=== PATIENT | male | born 1965 | race Two or more races ===

== ENCOUNTER 2020-07-22 09:04 | Inpatient (IN) | payer OTHER ==
[~2020-07-22] VITALS: Ht 172.7 cm; Wt 76.4 kg
--- NOTE | 2020-07-22 09:26 | PHYS DOC ---
Past History Past Medical History: Diabetes, Stroke Smoking: Quit Greater Than 1 Year General Adult EDM: Chief Complaint: ABDOMINAL PAIN HPI: HPI: Patient is a 55-year-old male arrives via EMS with a chief complaint of nausea and vomiting that began this morning. Patient states he had some diarrhea yesterday. Patient describes moderate at rest and severe in intensity diffuse abdominal pain that does not radiate. Patient denies any fevers but is diaphoretic. Pain is worse with movement and palpation. Pain is worse with eating. Pain is described as constant stabbing pain Review of Systems: Review of Systems: Constitutional: Denies fever Eyes: Denies change in visual acuity HENT: Denies nasal congestion or sore throat Respiratory: Denies cough or shortness of breath Cardiovascular: Denies chest pain or edema GI: Complains of abdominal pain, nausea, vomiting, diarrhea : Denies dysuria Musculoskeletal: Denies back pain or joint pain Integument: Denies rash Neurologic: Denies headache, focal weakness or sensory changes Endocrine: Complains of polyuria Lymphatic: Denies swollen glands Psychiatric: Denies depression or anxiety Heart Score: Risk Factors: Risk Factors: DM, Current or recent (<one month) smoker, HTN, HLP, family history of CAD, obesity. Risk Scores: Score 0 - 3: 2.5% MACE over next 6 weeks - Discharge Home Score 4 - 6: 20.3% MACE over next 6 weeks - Admit for Clinical Observation Score 7 - 10: 72.7% MACE over next 6 weeks - Early Invasive Strategies Allergies: Allergies: Allergies Coded Allergies Type Severity Reaction Last Updated Verified No Known Drug Allergies 07/22/20 No Physical Exam: PE: Constitutional: Well developed, well nourished, mild distress anxious HENT: Normocephalic, atraumatic, bilateral external ears normal, dry mucous membranes, nose normal. [] Eyes: PERRLA, EOMI, conjunctiva normal, no discharge. [] Neck: Normal range of motion, no tenderness, supple, no stridor. [] Cardiovascular:Heart rate regular rhythm, peripheral pulse intact, cap refill brisk Lungs & Thorax: Bilateral breath sounds clear, no respiratory distress Abdomen: Abdomen soft with diffuse tenderness no guarding rebound no masses no pulsatile masses Skin: Diaphoretic no erythema, no rash. [] Back: No tenderness, no CVA tenderness. [] Extremities: No tenderness, no cyanosis, no clubbing, ROM intact, no edema. [] Neurologic: Alert and oriented X 3, normal motor function, normal sensory function, no focal deficits noted. [] Psychologic: Affect normal, judgement normal, mood normal. [] Current Patient Data: Labs: Laboratory Tests Test 07/22/20 09:14 07/22/20 09:19 White Blood Count 10.8 x10^3/uL Red Blood Count 5.00 x10^6/uL Hemoglobin 14.4 g/dL Hematocrit 43.4 % Mean Corpuscular Volume 87 fL Mean Corpuscular Hemoglobin 29 pg Mean Corpuscular Hemoglobin Concent 33 g/dL Red Cell Distribution Width 15.8 % Platelet Count 308 x10^3/uL Neutrophils (%) (Auto) 78 % Lymphocytes (%) (Auto) 18 % Monocytes (%) (Auto) 3 % Eosinophils (%) (Auto) 1 % Basophils (%) (Auto) 1 % Neutrophils # (Auto) 8.5 x10^3uL Lymphocytes # (Auto) 2.0 x10^3/uL Monocytes # (Auto) 0.3 x10^3/uL Eosinophils # (Auto) 0.1 x10^3/uL Basophils # (Auto) 0.1 x10^3/uL Sodium Level 135 mmol/L Potassium Level 4.0 mmol/L Chloride Level 97 mmol/L Carbon Dioxide Level 20 mmol/L Anion Gap 18 Blood Urea Nitrogen 15 mg/dL Creatinine 1.1 mg/dL Estimated GFR (Cockcroft-Gault) 69.2 BUN/Creatinine Ratio 14 Glucose Level 445 mg/dL Lactic Acid Level 4.1 mmol/L Calcium Level 10.0 mg/dL Total Bilirubin 0.8 mg/dL Aspartate Amino Transf (AST/SGOT) 34 U/L Alanine Aminotransferase (ALT/SGPT) 59 U/L Alkaline Phosphatase 117 U/L Troponin I Quantitative < 0.017 ng/mL Total Protein 7.8 g/dL Albumin 4.1 g/dL Albumin/Globulin Ratio 1.1 Lipase 316 U/L Glucose (Fingerstick) 416 mg/dL Current Medications Medications (Trade) Dose Ordered Sig/Bernadette Route PRN Reason Start Time Stop Time Status Last Admin Dose Admin Sodium Chloride 1,000 ml @ 1,000 mls/hr 1X ONCE IV 9/26/20 09:30 07/22/20 10:29 DC 07/22/20 09:28 Ondansetron HCl (Zofran) 4 mg 1X ONCE IVP 07/22/20 09:30 07/22/20 09:41 DC 07/22/20 09:30 Morphine Sulfate (Morphine 4mg Syringe) 4 mg 1X ONCE IV 07/22/20 09:30 07/22/20 09:41 DC 07/22/20 09:31 Iohexol (Omnipaque 300 Mg/ml) 75 ml 1X ONCE IV 07/22/20 09:30 07/22/20 09:41 DC Metoclopramide HCl (Reglan Vial) 10 mg 1X ONCE IVP 07/22/20 09:45 07/22/20 09:46 DC 07/22/20 09:44 Piperacillin Sod/ Tazobactam Sod 3.375 gm/Sodium Chloride 50 ml @ 100 mls/hr 1X ONCE IV 07/22/20 10:15 07/22/20 10:44 DC 07/22/20 10:28 Sodium Chloride 2,040 ml @ 2,040 mls/hr Q1H IV 07/22/20 10:07 07/22/20 10:16 Sodium Chloride 1,000 ml @ 1,000 mls/hr 1X ONCE IV 07/22/20 10:15 07/22/20 11:14 DC Morphine Sulfate (Morphine 4mg Syringe) 4 mg 1X ONCE IV 07/22/20 10:15 07/22/20 10:22 DC 07/22/20 10:20 Sodium Chloride 50 ml @ As Directed STK-MED ONCE .ROUTE 07/22/20 10:23 07/22/20 10:23 DC Piperacillin Sod/ Tazobactam Sod (Zosyn) 3.375 gm STK-MED ONCE IV 07/22/20 10:23 07/22/20 10:24 DC Laboratory Tests Test 07/22/20 09:19 Glucose (Fingerstick) 416 mg/dL (70-99) H Vital Signs: Vital Signs Date Time Temp Pulse Resp B/P (MAP) Pulse Ox O2 Delivery O2 Flow Rate FiO2 07/22/20 09:04 58 29 13/57 (42) 100 Room Air EKG: EKG: EKG interpreted by me normal sinus rhythm with rate of 63 normal axis normal intervals normal ST segments [] Radiology/Procedures: Radiology/Procedures: [][address] [address] IMAGING REPORT Signed PATIENT: GEORGE GUSMAN ACCOUNT: [id number] : 1965 LOCATION: ER AGE: 55 SEX: M EXAM STATUS: REG ER ORD. PHYSICIAN: JOCY TREVINO MD REASON: abd pain, n/v PROCEDURE: PORTABLE CHEST 1V EXAM: AP View of the chest DATE: 07/22/2020 9:22 AM INDICATION: abd pain, n/v COMPARISON: No Prior FINDINGS: The heart is not enlarged. Mediastinal and hilar contours are normal. No focal parenchymal airspace opacity. Calcified granuloma right upper lung. No pleural effusion or pneumothorax. IMPRESSION: 1. No radiographic evidence for acute cardiopulmonary process. Electronically signed by: Benedicto Davis MD (07/22/2020 10:26 AM) [id number] DICTATED AND SIGNED BY: BENEDICTO DAVIS MD DATE: 07/22/20 1026 CC: JOCY TREVINO MD; CHRISTA LIZ MD ~ [address] [address] IMAGING REPORT Signed PATIENT: GEORGE GUSMAN ACCOUNT: [id number] : 1965 LOCATION: ER AGE: 55 SEX: M EXAM STATUS: REG ER ORD. PHYSICIAN: JOCY TREVINO MD REASON: abd pain, n/v PROCEDURE: CT ABD PELV W/ IV CONTRST ONLY Exam performed: CT scan of the abdomen and pelvis with contrast Clinical Indication:Abdominal pain Date of Service:07/22/2020 comparison: None available Technique: Contiguous helical acquisitions are obtained from the lung bases to the pelvis during intravenous administration of [75 cc of Isovue-370]. Sagittal and coronal reformatted images were obtained and reviewed. CT abdomen and pelvis findings: The lung bases appear essentially clear. Visualized heart is normal Mild hepatic steatosis. The spleen and pancreas appears unremarkable. Cholecystectomy Both adrenal glands and bilateral kidneys appear normal with symmetric excretion of contrast via both kidneys. The small bowel loops appear nondilated and unremarkable. Previous appendectomy There is diffuse thickening of the transverse, descending and proximal sigmoid colon without inflammatory changes. There are colonic diverticulosis. Aorta is normal in caliber. There is no retroperitoneal lymphadenopathy or mass lesions. No bowel related inflammatory stranding is noted. The urinary bladder is well distended and normal . Prostate gland, seminal vesicles and rectum appear normal Interrogation of bone windows demonstrates no obvious bony abnormality. Sagittal and coronal reformatted images were obtained and reviewed which demonstrate no additional findings. Impression abdomen and pelvis : 1. Mild diffuse thickening of transverse and descending and proximal sigmoid colon without inflammatory changes. Mild colitis is suspected. 2. Sigmoid diverticulosis without acute diverticulitis. 3. Mild hepatic steatosis. PQRS Compliance Statement: One or more of the following individualized dose reduction techniques were utilized for this examination: 1. Automated exposure control 2. Adjustment of the mA and/or kV according to patient size 3. Use of iterative reconstruction technique Electronically signed by: Ender Chirinos MD (07/22/2020 11:03 AM) [id number] DICTATED AND SIGNED BY: ENDER CHIRINOS MD DATE: 07/22/20 1103 CC: JOCY TREVINO MD; CHRISTA LIZ MD ~ Course & Med Decision Making: Course & Med Decision Making Pertinent Labs and Imaging studies reviewed. (See chart for details) [] 55-year-old male presents with nausea vomiting. Patient has a history of diabetes and his blood sugar is over 400. Patient also sent lactate over 4. Patient has a anion gap acidosis, I am unsure if this is due to DKA or sepsis and lactic acidosis or more likely a combination of both. Patient has a CT that shows diffuse colitis of which she has been given Zosyn. Patient given sepsis fluids and was placed on insulin drip. Patient will be admitted to Dr. Luna to the ICU. Critical care time was 35 minutes exclusive of procedures. Critical condition: DKA, sepsis Critical interventions, sepsis bundle, insulin infusion, admission to the ICU [place] Disclaimer: Wayne Disclaimer: This electronic medical record was generated, in whole or in part, using a voice recognition dictation system. Date and Time of Assessment Date: Jul 22, 2020 Time: 10:00 Vital Signs Vital Signs Vital Signs Date Time Temp Pulse Resp B/P (MAP) Pulse Ox O2 Delivery O2 Flow Rate FiO2 07/22/20 09:07 97.5 58 24 163/98 (119) 100 07/22/20 09:04 Room Air Vital Signs Date Time Temp Pulse Resp B/P (MAP) Pulse Ox O2 Delivery O2 Flow Rate FiO2 07/22/20 09:07 97.5 58 24 163/98 (119) 100 07/22/20 09:04 Room Air Respirations Respiratory Effort: Normal Respiratory Pattern: Normal Cardiovascular Pulse Rhythm: Regular HEART: Nml rate, reg. rhythm Lung Sounds Breath Sounds: Clear Capillary Refill Capillary Refill: Lt Hand < 3 seconds Peripheral Pulse Pulse Location: Monitor Pulse Strength: Normal (2+) Pulse Assessment Method: NIBP Integumentary Skin: Diaphoretic Skin Moisture: Diaphoretic Skin Turgor: Normal Skin Color: no erythema Fingernail Color: WNL Departure Departure: Impression: Primary Impression: DKA (diabetic ketoacidoses) Additional Impressions: Sepsis Abdominal pain Colitis Disposition: ADMITTED INPATIENT Admitting Physician: Osman Luna Condition: GUARDED Referrals: CHRISTA LIZ MD (PCP) Justification of Admission: Justification of Admission: Justification of Admission Dx: Yes (dka, colitis) JOCY TREVINO MD Jul 22, 2020 09:26
[2020-07-22] MEDS ORDERED: ONDANSETRON PF 4 MG/2 ML VIAL. IVP ONE (09:30)
[2020-07-22] MEDS ORDERED: IOHEXOL 300 MG/ML 75 ML VIAL. IV ONE (09:30)
[2020-07-22] MEDS ORDERED: MORPHINE SULFATE 4 MG/ML DISP.SYRIN. IV ONE ×2 (09:30→10:15)
[2020-07-22] MEDS ORDERED: IV NORMAL SALINE 1,000ML 1,000 ML IV ONE ×3 (09:30→11:30)
[2020-07-22 09:36] LABS: BASO # 0.1 x10^3/uL (0.0-0.2); BASO % 1 % (0-3); EOS # 0.1 x10^3/uL (0.0-0.7); EOS % 1 % (0-3); HEMATOCRIT 43.4 % (39.0-53.0); HEMOGLOBIN 14.4 g/dL (13.0-17.5); LYMPH % 18 % (24-48); MEAN CORPUSCULAR HEMOGLOBIN 29 pg (25-35); MEAN CORPUSCULAR HGB CONC 33 g/dL (31-37); MEAN CORPUSCULAR VOLUME 87 fL (79-100); MONO # 0.3 x10^3/uL (0.0-1.1); MONO % 3 % (0-9); NEUT # 8.5 x10^3uL (1.8-7.7); NEUT % 78 % (31-73); PLATELET COUNT 308 x10^3/uL (140-400); RED CELL DISTRIBUTION WIDTH 15.8 % (11.5-14.5); WHITE BLOOD COUNT 10.8 x10^3/uL (4.0-11.0)
[2020-07-22] MEDS ORDERED: METOCLOPRAMIDE HCL 10 MG/2 ML VIAL. IVP ONE (09:45)
[2020-07-22 09:50] LABS: ALBUMIN 4.1 g/dL (3.4-5.0); ALBUMIN/GLOBULIN RATIO 1.1 (1.0-1.7); CREATININE 1.1 mg/dL (0.7-1.3); GFR 69.2; TOTAL BILIRUBIN 0.8 mg/dL (0.2-1.0); TOTAL PROTEIN 7.8 g/dL (6.4-8.2)
[2020-07-22] MEDS ORDERED: IV NORMAL SALINE 1,000ML 2,040 ML IV SCH (10:07)
[2020-07-22] MEDS ORDERED: PIPERACILLIN/TAZOBACTAM 3.375 GM in IV NORMAL SALINE 50ML 50 ML IV ONE (10:15)
[2020-07-22] MEDS ORDERED: IV NORMAL SALINE 50ML 50 ML ONE (10:23)
[2020-07-22] MEDS ORDERED: PIPERACILLIN/TAZOBACTAM 3.375 GM VIAL IV ONE (10:23)
--- NOTE | 2020-07-22 10:29 | RAD ---
EXAM: AP View of the chest DATE: 07/22/2020 9:22 AM INDICATION: abd pain, n/v COMPARISON: No Prior FINDINGS: The heart is not enlarged. Mediastinal and hilar contours are normal. No focal parenchymal airspace opacity. Calcified granuloma right upper lung. No pleural effusion or pneumothorax. IMPRESSION: 1. No radiographic evidence for acute cardiopulmonary process. Electronically signed by: Benedicto Bernal MD (07/22/2020 10:26 AM) [id number]
--- NOTE | 2020-07-22 11:06 | RAD ---
Exam performed: CT scan of the abdomen and pelvis with contrast Clinical Indication:Abdominal pain Date of Service:07/22/2020 comparison: None available Technique: Contiguous helical acquisitions are obtained from the lung bases to the pelvis during intravenous administration of [75 cc of Isovue-370]. Sagittal and coronal reformatted images were obtained and reviewed. CT abdomen and pelvis findings: The lung bases appear essentially clear. Visualized heart is normal Mild hepatic steatosis. The spleen and pancreas appears unremarkable. Cholecystectomy Both adrenal glands and bilateral kidneys appear normal with symmetric excretion of contrast via both kidneys. The small bowel loops appear nondilated and unremarkable. Previous appendectomy There is diffuse thickening of the transverse, descending and proximal sigmoid colon without inflammatory changes. There are colonic diverticulosis. Aorta is normal in caliber. There is no retroperitoneal lymphadenopathy or mass lesions. No bowel related inflammatory stranding is noted. The urinary bladder is well distended and normal . Prostate gland, seminal vesicles and rectum appear normal Interrogation of bone windows demonstrates no obvious bony abnormality. Sagittal and coronal reformatted images were obtained and reviewed which demonstrate no additional findings. Impression abdomen and pelvis : 1. Mild diffuse thickening of transverse and descending and proximal sigmoid colon without inflammatory changes. Mild colitis is suspected. 2. Sigmoid diverticulosis without acute diverticulitis. 3. Mild hepatic steatosis. PQRS Compliance Statement: One or more of the following individualized dose reduction techniques were utilized for this examination: 1. Automated exposure control 2. Adjustment of the mA and/or kV according to patient size 3. Use of iterative reconstruction technique Electronically signed by: Ashley Chirinos MD (07/22/2020 11:03 AM) [id number]
[2020-07-22 11:23] LABS: BILIRUBIN,URINE NEG (NEG); CLARITY,URINE CLEAR; COLOR,URINE YELLOW; GLUCOSE,URINE >=1000 mg/dL (NEG); NITRITE,URINE NEG (NEG); UROBILINOGEN,URINE 0.2 mg/dL (0.2 mg/dL)
[2020-07-22 11:24] LABS: BACTERIA,URINE 0 /HPF (0-FEW); SQUAMOUS EPITHELIAL CELL,UR FEW /LPF; WBC,URINE OCC /HPF (0-4)
[2020-07-22] MEDS ORDERED: DEXTROSE 50% 25 GM / 50ML DISP.SYRIN. IV PRN (11:30)
[2020-07-22] MEDS ORDERED: INSULIN REGULAR VIAL 100 UNIT in IV NORMAL SALINE 100ML 100 ML IV PRN (11:30)
[2020-07-22] MEDS ORDERED: IV NORMAL SALINE 100ML 100 ML ONE (12:41)
[2020-07-22] MEDS: MORPHINE SULFATE 2 MG/ML DISP.SYRIN. IVP PRN ×4 (12:45→22:28)
--- NOTE | 2020-07-22 13:25 | NUR ---
The patient, GEORGE GUSMAN, 55 y/o, M admitted by LARA MALLOY MD, was given written information regarding hospital policies, unit procedures and contact persons. Valuables were checked and left with patient at bedside. pt's was called and verified meds via phone. pt's resting in bed. Insulin drip resumed and IV fluids running at this time. Pt requested more pain medication.
[2020-07-22 13:30] VITALS: BP 154/84
--- NOTE | 2020-07-22 14:14 | EKG ---
[address] [address] Test Date: 2020-07-22 Test Time: 09:17:01 Pat Name: GEORGE GUSMAN Department: Room: [id number] 1 Gender: M Graphic User Interface Designer: NANCI : 1965 Requested By: JOCY TREVINO Order Number: [id number] Reading MD: Gurjit Candelario Measurements Intervals Tarrs Rate: 63 P: 1 RI: 158 QRS: 3 QRSD: 86 T: 40 QT: 448 QTc: 462 Interpretive Statements SINUS RHYTHM NORMAL ECG RI6.02 No previous ECG available for comparison Electronically Signed On 07-26-2020 12:31:18 CDT by Gurjit Candelario
[2020-07-22] MEDS ORDERED: CITA20TA9 PO (14:16)
[2020-07-22] MEDS ORDERED: NPH,100V SQ (14:16)
[2020-07-22] MEDS ORDERED: INSU100V11 IJ (14:16)
[2020-07-22] MEDS ORDERED: LISI1TAB23 PO (14:16)
[2020-07-22 15:12] VITALS: BP 138/85
[2020-07-22 16:59] LABS: CALCIUM 9.2 mg/dL (8.5-10.1); GFR 77.3; POTASSIUM 3.7 mmol/L (3.5-5.1)
--- NOTE | 2020-07-22 17:01 | HP ---
ADMIT DATE: 07/22/2020 HISTORY OF PRESENT ILLNESS: The patient is a 55-year-old male patient who presented to the Emergency Room with severe abdominal pain that started around 6:00 this morning. He had some diarrhea yesterday. The patient describes moderate at rest and severe in intensity of diffuse abdominal pain that does not radiate. He denied any fever, but he was diaphoretic when he arrived. The pain is worse with movement and palpation, worse with eating. He describes it as a constant, stabbing pain. He was extensively investigated in the Emergency Room and his lab work showed that his white cell count was actually normal; however, his chemistry showed that he has high anion gap metabolic acidosis, hyperglycemia and also lactic acidosis; in fact, his lactic acid was 4.1. His urinalysis showed large amount of glucose, large amount of ketones, trace amount of blood, but negative for nitrite, bilirubin and leukocyte esterase. His chest x-ray was unremarkable; however, CT scan of the abdomen and pelvis with IV contrast showed the patient has mild diffuse thickening of the transverse and descending and proximal sigmoid colon without inflammatory changes, mild colitis suspected. He has sigmoid diverticulosis without acute diverticulitis and mild hepatic steatosis. The urinary bladder is well distended and normal. Prostate gland, seminal vesicle and rectum appear normal. Interrogation of bone windows demonstrates no obvious bony abnormality and the patient was admitted with diagnoses of diabetic ketoacidosis as well as lactic acidosis. He has colitis, is possibly infectious versus ischemic; was treated with IV fluid, IV Zosyn and was started on insulin drip. It transpired that he has not had any insulin for over the last 6 months. He was on Levemir and Humalog insulin and then he ran out of his insurance, he has not received any insulin for the last 6 months. PAST MEDICAL HISTORY: Significant for type 2 diabetes, diagnosed about 15 years ago; hypertension, cerebrovascular accident with left-sided weakness x 2. 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 He has also what seemed to be necrotizing fasciitis, was treated about a year ago when he moved to this state from [place]. At that time, he had also infected left fifth toe that was amputated. PAST SURGICAL HISTORY: Significant for appendectomy, cholecystectomy, rotator cuff tear repair x 2 over the right side. He has loop recorder when he had CVA in 2019 for possible arrhythmia and most recently about 4 weeks ago, he had an infected cyst on the outer aspect of left thigh that was incised and drained and was treated with IV antibiotic while in the hospital and continued to take oral antibiotics thereafter. In fact, yesterday he went to his wound care team there and was told that he does not need any dressing changes. ALLERGIES: He has no known drug allergies. MEDICATIONS: He is currently on following medications: He is on lisinopril/hydrochlorothiazide 10/12.5 one tablet once a day, citalopram hydrobromide 20 mg once a day. He is on Novolin R 7 units 3 times a day and NPH insulin 15 units b.i.d. FAMILY HISTORY: He has 5 sisters, older and healthy. His father at the age of 78 because of myocardial infarction. Mother is still alive at the age of 90 and used to be diabetic; however, she lost lots of weight and she has no more diabetes according to him. SOCIAL HISTORY: He is , has 3 daughters. He quit smoking about 15 years ago. He does not drink alcohol; however, he smokes marijuana occasionally. He is currently on disability. REVIEW OF SYSTEMS: The patient did complain of blurring vision mostly in his right eye, but denied any cataract, glaucoma or macular degeneration. Denied any earache, tinnitus or sensorineural deafness. Denied any nosebleeds, stuffy nose or postnasal drip. Denied any sore throat, sore tongue, toothache, hoarseness of voice or difficulty swallowing. Did complain of recurrent bouts of nausea and vomiting this morning started around 6:00 according to him; did have diarrhea yesterday; however, he denied any hematemesis, melena, or hematochezia. Denied any dysuria, frequency or hematuria. Denied any nocturia. Denied any chest pain, shortness of breath, orthopnea, paroxysmal nocturnal dyspnea. Denied any cough, phlegm or hemoptysis. Denied any dizziness, lightheadedness, or vertigo. Denied any fever, rigors, or chills. PHYSICAL EXAMINATION: GENERAL: On arrival to the Emergency Room, he was somewhat pale, but no jaundice, cyanosis or thyromegaly. No jugular venous distention. No limb edema. VITAL SIGNS: His heart rate was 58, blood pressure was 163/98, temperature was 97.5, respiratory rate 24 and oxygen saturation was 100%. HEAD, EYES, EARS, NOSE AND THROAT: Showed normocephalic, atraumatic. NECK: Supple. HEART: Showed normal first and second heart sounds. No gallop or murmur. CHEST: Showed central trachea, equal bilateral expansion, air entry, vesicular breath sounds. No crepitation or rhonchi. ABDOMEN: Distended, soft, diffusely tender. There was no guarding or rigidity. No organomegaly. All hernial orifices intact. Bowel sounds normal. NEUROLOGIC: He was awake, alert, responding appropriately. All cranial nerves intact. EXTREMITIES: He moves extremities without difficulty. The wound on the outer aspect of his left thigh has healed completely with no surrounding erythema, tenderness or discharge. He has left fifth toe amputation. LABORATORY DATA: His lab work on arrival showed a white cell count of 10,800, hemoglobin 14.4, hematocrit 43.4, MCV 87 and platelet count of 308,000 with normal manual differential. His chemistry showed a serum sodium 135, potassium 4, chloride 97, bicarbonate 20, anion gap of 18, BUN of 15, creatinine 1.1, estimated GFR was 69 mL per minute. His glucose was 145, calcium was 10. Total bilirubin, AST, ALT were normal. Alkaline phosphatase slightly elevated. His total protein was 7.8, albumin was 4.1. Serum lipase was 316. Troponin was less than 0.017. His initial lactic acid was 4.1. His urinalysis showed that the urine was yellow, clear with a pH of 6.5, specific gravity of 1.015 with small amount of protein, large amount of glucose and large amount of ketones. The urine was negative for nitrite, bilirubin and leukocyte esterase. There were 1-2 rbc's, occasional wbc's, and no bacteria. His chest x-ray showed the heart is not enlarged. The mediastinum and hilum contours are normal. No focal parenchymal airspace opacity. Calcified granuloma, right upper lung. No pleural effusion or pneumothorax. His CT scan of the abdomen with IV contrast showed the lung bases appear essentially clear. Visualized heart is normal. He has mild hepatic steatosis. The spleen and the pancreas appear unremarkable. He has cholecystectomy. Both adrenal glands and bilateral kidneys appear normal with symmetric excretion of contrast via both kidneys. The small bowel loops appear nondilated and unremarkable. Previous appendectomy. There is diffuse thickening of the transverse, descending and proximal sigmoid colon without inflammatory changes and there is colonic diverticulosis. Aorta is normal in caliber. There are no retroperitoneal lymphadenopathy or mass lesions. No bowel related inflammatory stranding is noted. The urinary bladder is well distended and normal. Prostate gland, seminal vesicles and rectum appeared normal. Interrogation of bone windows demonstrates no obvious bony abnormality. The sagittal and coronal reformatted images were obtained and reviewed, which demonstrate no additional finding and the impression is that the patient has mild diffuse thickening of the transverse and descending and proximal sigmoid colon without inflammatory changes, has mild colitis and suspected sigmoid diverticulosis without acute diverticulitis and mild hepatic steatosis. ASSESSMENT AND PLAN: The patient was basically admitted with acute infectious versus ischemic colitis. He has also metabolic lactic acidosis and mild diabetic ketoacidosis. He is known to have type 2 diabetes as well as hypertension. He has also depression, for which he is on citalopram hydrobromide. My plan is to continue with IV fluid, continue with IV Zosyn, continue with the insulin drip and continue with IV morphine and will repeat his labs this afternoon and again tomorrow. I also added LDH to see whether this is ischemic versus infectious colitis. LARA MALLOY MD DR: CLAIRE/elaina JOB#: [id number] / [id number]
[2020-07-22 17:05] LABS: ALBUMIN 3.7 g/dL (3.4-5.0); ALBUMIN/GLOBULIN RATIO 0.9 (1.0-1.7); TOTAL BILIRUBIN 0.6 mg/dL (0.2-1.0); TOTAL PROTEIN 7.6 g/dL (6.4-8.2)
[2020-07-22] MEDS: PIPERACILLIN/TAZOBACTAM 3.375 GM in IV NORMAL SALINE 50ML 50 ML IV SCH (18:26)
[2020-07-22] MEDS ORDERED: IV DEXTROSE 5 %-0.45 % NACL 1,000 ML IV SCH (18:34)
[2020-07-22] MEDS ORDERED: POTASSIUM CHLORIDE 10MEQ 100 ML IV PRN (18:45)
[2020-07-22] MEDS: POTASSIUM CL 20MEQ D5-0.45NACL 1,000 ML IV SCH (19:54)
[2020-07-22 20:59] VITALS: BP 152/88
[2020-07-22 23:14] LABS: CALCIUM 8.7 mg/dL (8.5-10.1); CREATININE 0.8 mg/dL (0.7-1.3); POTASSIUM 3.4 mmol/L (3.5-5.1)
[2020-07-22 23:38] VITALS: BP 140/84
[2020-07-23] VITALS (8 sets, daily range): BP systolic 142–166; BP diastolic 63–96
[2020-07-23] MEDS: PIPERACILLIN/TAZOBACTAM 3.375 GM in IV NORMAL SALINE 50ML 50 ML IV SCH ×4 (00:05→19:18)
[2020-07-23] MEDS: POTASSIUM CL 20MEQ D5-0.45NACL 1,000 ML IV SCH ×2 (01:42→08:00)
[2020-07-23] MEDS: MORPHINE SULFATE 2 MG/ML DISP.SYRIN. IVP PRN ×2 (01:46→06:04)
[2020-07-23] MEDS: ONDANSETRON PF 4 MG/2 ML VIAL. IVP PRN ×2 (06:03→10:10)
[2020-07-23 06:52] LABS: HEMATOCRIT 36.2 % (39.0-53.0); HEMOGLOBIN 12.1 g/dL (13.0-17.5); RED BLOOD COUNT 4.19 x10^6/uL (4.30-5.70); RED CELL DISTRIBUTION WIDTH 15.8 % (11.5-14.5); WHITE BLOOD COUNT 7.3 x10^3/uL (4.0-11.0)
[2020-07-23 07:09] LABS: ALBUMIN 2.9 g/dL (3.4-5.0); ALBUMIN/GLOBULIN RATIO 0.9 (1.0-1.7); CALCIUM 8.6 mg/dL (8.5-10.1); CREATININE 0.8 mg/dL (0.7-1.3); POTASSIUM 3.3 mmol/L (3.5-5.1); TOTAL BILIRUBIN 0.8 mg/dL (0.2-1.0); TOTAL PROTEIN 6.3 g/dL (6.4-8.2)
[2020-07-23] MEDS ORDERED: FLU VACC QS 2020-21(6MOS+)/PF 0.5 ML SYRINGE. VAX IM ONE (09:00)
[2020-07-23] MEDS ORDERED: POTASSIUM CHLORIDE 20 MEQ TABLET.ER. PO ONE (09:15)
[2020-07-23] MEDS: POTASSIUM CL 40MEQ IN 0.9%NACL 1,000 ML IV SCH ×2 (10:04→22:46)
[2020-07-23] MEDS: oxyCODONE IR 5 MG TABLET PO PRN ×2 (10:05→19:33)
[2020-07-23] MEDS: INSULIN LISPRO 300 UNITS/3 ML VIAL. SQ SCH ×2 (12:49→17:09)
[2020-07-23] MEDS ORDERED: ONDANSETRON PF 4 MG/2 ML VIAL. IVP PRN (19:30)
[2020-07-23 19:42] LABS: CALCIUM 8.8 mg/dL (8.5-10.1); GFR 77.3; POTASSIUM 3.9 mmol/L (3.5-5.1)
[2020-07-23] MEDS: NEOMY/BACITR/POLYMYXIN OINT PACKET. TP SCH (22:46)
[2020-07-24] VITALS (7 sets, daily range): BP systolic 132–157; BP diastolic 49–106
[2020-07-24] MEDS: PIPERACILLIN/TAZOBACTAM 3.375 GM in IV NORMAL SALINE 50ML 50 ML IV SCH ×3 (00:02→11:54)
[2020-07-24 06:47] LABS: CREATININE 0.9 mg/dL (0.7-1.3); GFR 87.3; MAGNESIUM 1.7 mg/dL (1.8-2.4); POTASSIUM 3.9 mmol/L (3.5-5.1)
--- NOTE | 2020-07-24 07:39 | PN ---
DATE: 07/23/2020 SUBJECTIVE: The patient is resting, slightly propped up in bed, in no apparent respiratory distress. He is awake, alert, continued to have some nausea, but no vomiting. His abdominal pain is much better controlled. He has not had any bowel movement. He is afebrile and his white cell count is down to 7300. PHYSICAL EXAMINATION: GENERAL: When I examined him this afternoon, he looked well and was clearly in no apparent distress. No pallor, jaundice, cyanosis or thyromegaly. No jugular venous distention. No limb edema. VITAL SIGNS: His heart rate was 76, blood pressure was 160/90, temperature 98.3, respiratory rate was 18 and oxygen saturation was 96% on room air. HEAD, EYES, EARS, NOSE AND THROAT: Showed normocephalic, atraumatic. NECK: Supple. HEART: Showed normal first and second heart sounds. No gallop or murmur. CHEST: Showed central trachea, equal bilateral expansion, air entry, vesicular breath sounds. No crepitation or rhonchi. ABDOMEN: Distended, soft. No tenderness. No guarding or rigidity. No organomegaly. All hernial orifices intact. Bowel sounds normal. NEUROLOGIC: He was awake, alert, responding appropriately. All cranial nerves are intact. He moves extremities without difficulty. He ambulates without assistance or assistive devices. His intake and output are incompletely recorded. LABORATORY DATA: This morning showed white cell count is down to 7300, hemoglobin 12, hematocrit 36, MCV 87 and platelet count 239,000. His chemistry showed a serum sodium ____, potassium 3.7, chloride 102, bicarbonate 22, anion gap of 13, BUN 14, creatinine 1, estimated GFR was 77 mL per minute. His glucose was 197. Calcium was 9.2. Total bilirubin, AST, ALT, alkaline phosphatase were normal. Lactate dehydrogenase was 196. Serum sodium was 143. Total protein 6.3, albumin 2.9. ASSESSMENT: 1. Diabetic ketoacidosis, resolved. His anion gap is down to 10 from 18. 2. Hyponatremia, resolved. His blood sugar is much better controlled now. 3. Acute infectious colitis for which he is on Zosyn. The patient has had no bowel movement and his LDH was only 196 excluding the possibility of ischemic colitis. Other problems include type 2 diabetes mellitus diagnosed 15 years ago. The patient has been off his insulin for almost 6 months now. 4. Hypertension. 5. Cerebrovascular accident with left sided weakness x 2. 6. Diabetic peripheral neuropathy. 7. Visual impairment in his right eye. 8. Osteoarthritis of both hip joints. PLAN: My plan is to monitor his blood sugar and adjust insulin as needed. Continue with IV antibiotic. Continue with pain management and antiemetic. Continue with IV fluid for now. I will evaluate him again tomorrow morning and if he remains stable, he might be able to be discharged home to continue on oral antibiotic and insulin as he was before together with antihypertensive ____. LARA MALLOY MD DR: CLAIRE/elaina JOB#: [id number] / [id number]
[2020-07-24] MEDS: oxyCODONE IR 5 MG TABLET PO PRN (08:37)
[2020-07-24] MEDS: INSULIN LISPRO 300 UNITS/3 ML VIAL. SQ SCH ×2 (08:44→12:01)
[2020-07-24] MEDS: NEOMY/BACITR/POLYMYXIN OINT PACKET. TP SCH ×2 (08:45→12:01)
[2020-07-24] MEDS ORDERED: LISINOPRIL 10 MG TABLET PO SCH (09:00)
[2020-07-24] MEDS ORDERED: hydroCHLOROthiazide 12.5 MG CAPSULE PO SCH (09:00)
[2020-07-24] MEDS ORDERED: LACTOBACILLUS RHAMNOSUS GG 1 CAPSULE. PO SCH (09:00)
[2020-07-24] MEDS: POTASSIUM CL 40MEQ IN 0.9%NACL 1,000 ML IV SCH (11:55)
[2020-07-24] MEDS ORDERED: INSU100I13 SQ (13:55)
--- NOTE | 2020-07-24 14:39 | NUR ---
PT IS DISCHARGED HOME WITH SELF CARE. PTS IV IS DC'D AND TELE REMOVED. PATIENT IS GIVEN DISCHARGE AND FOLLOW UP INSTRUCTIONS. PATIENT IS GIVEN PRESCRIPTIONS FOR FLAGYL 500MG PO TID, HUMALIN -U100 5U TID WITH MEALS, LEVEMIR 15U BID. PATIENT IS ESCORTED OFF OF UNIT ACCOMPANIED BY STAFF.
== END 2020-07-24 14:38 | disposition home or self-care (01) | DRG 871 ==
LOC: ER 09:04 → ICU 11:25
PROVIDERS: ADMIT Internal Medicine; ATTEND Internal Medicine
DX: A41.9 Sepsis, unspecified organism (principal); E11.10 Type 2 diabetes mellitus with ketoacidosis without coma; A09 Infectious gastroenteritis and colitis, unspecified; E87.1 Hypo-osmolality and hyponatremia; I69.354 Hemiplegia and hemiparesis following cerebral infarction affecting left non-dominant side; E11.42 Type 2 diabetes mellitus with diabetic polyneuropathy; F12.90 Cannabis use, unspecified, uncomplicated; F32.9 Major depressive disorder, single episode, unspecified; H54.7 Unspecified visual loss; I10 Essential (primary) hypertension; K57.30 Diverticulosis of large intestine without perforation or abscess without bleeding; K76.0 Fatty (change of) liver, not elsewhere classified; M16.0 Bilateral primary osteoarthritis of hip; Z82.49 Family history of ischemic heart disease and other diseases of the circulatory system; Z87.891 Personal history of nicotine dependence; Z90.49 Acquired absence of other specified parts of digestive tract; Z83.3 Family history of diabetes mellitus
CPT/HCPCS: 36415; 71045; 74177; 80048; 80053; 81001; 82947; 83605; 83615; 83690; 83735; 84484; 85025; 85027; 87040; 90471; 93005; 96361; 96365; 96367; 96375; 96376; J1815; J2270; J2405; J2543; J2765; 90686; 99285-25; J7030